=== PATIENT | female | born 1990 | race Caucasian/White ===

== ENCOUNTER 2016-07-27 03:12 | Emergency (ER) | payer MEDICAID ==
[~2016-07-27] VITALS: Ht 177.8 cm; Wt 65.0 kg
[~2016-07-27 03:12] MED LIST: BACT800T5 PO; CEPH500C3 PO
[2016-07-27 03:14] VITALS: BP 129/67; PULSE 90; RESP 16; TEMP 101.4; O2SAT 98
[2016-07-27 03:42] VITALS: BP 122/58; PULSE 78; RESP 18; TEMP 101; O2SAT 99
[2016-07-27] MEDS ORDERED: cefTRIAXone INJ 1,000 MG in SODIUM CHLORIDE 0.9% INJ 100 ML IV ONE (04:15)
[2016-07-27] MEDS ORDERED: IBUPROFEN 600 MG TAB PO ONE (04:15)
[2016-07-27] MEDS ORDERED: SODIUM CHLOR 0.9% 1000 ML INJ 1,000 ML IV ONE (04:15)
--- NOTE | 2016-07-27 04:44 | PD ---
HPI Chief Complaint: Cold / Flu Symptoms Time Seen by Provider: 03:47 Travel History International Travel<30 days: No Contact w/Intl Traveler<30days: No Traveled to known affect area: No History of Present Illness HPI The patient is a 25 year old female who presents to the [facility] emergency department with a history of a sore throat with lymph node swelling that she reports began yesterday. The patient reports that today she's had a fever with a MAXIMUM TEMPERATURE of 102. She reports that she last took Tylenol at 2 AM and her fever was not going down, therefore she came to the emergency department. She denies having any cough, nasal congestion, or rhinorrhea. She denies having any rashes. She denies having any known sick contacts. She denies having any neck stiffness. She denies having any abdominal pain, nausea, vomiting, or diarrhea. Review of systems, the patient denies any The patient denies any chest pain, shortness of breath, urinary symptoms, or neurologic symptoms. The patient denies any cat exposures. [facility] Past Medical History Narrative Medical The patient's past medical history is reportedly none. Medical History: Denies Significant Hx Diminished Hearing: No Reproductive: Yes (CHLAMYDIA ON 08/24/09) Immunizations Current: Yes Tetanus Vaccination: Unknown Influenza Vaccination: No ?: Not LMP: 07/21/2016 : 2 Para: 2 Past Surgical History Narrative Surgical The patient's past surgical history is reportedly none. 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 a history of opiate addiction.) Allergies-Medications (Allergen,Severity, Reaction): Coded Allergies: *MDRO Multi-Drug Resistant Organism (Verified Allergy, Unknown, 07/27/16) Wound MRSA 2005 Reported Meds & Prescriptions Reported Meds & Active Scripts Active Keflex (Cephalexin Monohydrate) 500 Mg Cap 500 Mg PO Q6 10 Days Bactrim DS (Sulfamethoxazole-Trimethoprim DS) 1 Tab Tab 1 Tab PO BID 10 Days Review of Systems Except as stated in HPI: all other systems reviewed are Neg General / Constitutional: Positive: Fever Eyes: No: Visual changes HENT: Positive: Sore Throat, Neck Pain, No: Headaches, Rhinorrhea, Congestion , Neck Stiffness Cardiovascular: No: Chest Pain or Discomfort Respiratory: No: Cough, Shortness of Breath Gastrointestinal: No: Nausea, Vomiting, Diarrhea, Abdominal Pain Genitourinary: No: Dysuria Musculoskeletal: No: Pain Skin: No Rash Neurologic: No: Weakness, Focal Abnormalities, Change in Mentation, Slurred Speech, Sensory Disturbance Psychiatric: No: Depression Endocrine: No: Polydipsia Hematologic/Lymphatic: No: Easy Bruising Physical Exam Narrative General: The patient is a well-developed well-nourished female in no acute distress. Head and Neck exam: Head is normocephalic atraumatic. Eyes: EOMI, pupils are equal round and reactive to light. Nose: Midline septum with pink mucous membranes Mouth: Dentition unremarkable. Moist mucus membranes. Posterior oropharynx erythematous with tonsillar hypertrophy and exudates noted. Uvula midline. Airway patent. Neck: The patient has palpable anterior cervical lymphadenopathy near her tonsils with tenderness on palpation. No nuchal rigidity. No thyromegaly. Cardiovascular: Regular rate and rhythm without murmurs, gallops, or rubs. Lungs: Clear to auscultation bilaterally. No wheezes, rhonchi, or rales. Abdomen: Soft, without tenderness to palpation in all 4 quadrants of the abdomen. No guarding, rebound, or rigidity. Normal bowel sounds are audible. No tenderness on palpation of McBurney's point. Extremities: No clubbing, cyanosis, or edema. 2+ pulses in all 4 extremities. No calf tenderness on palpation. Back: No costovertebral angle tenderness to palpation. Neurologic Exam: Grossly nonfocal. Skin Exam: No rash noted. Intact skin that is warm and dry. Data Data Last Documented VS Vital Signs Date Time Temp Pulse Resp B/P Pulse Ox O2 Delivery O2 Flow Rate FiO2 07/27/16 03:42 101.0 78 18 122/58 99 Room Air Orders Group A Rapid Strep Screen (07/27/16 03:48) Ceftriaxone Inj (Rocephin Inj) (07/27/16 04:15) Sodium Chlor 0.9% 1000 Ml Inj (Ns 1000 M (07/27/16 04:15) Ibuprofen (Motrin) (07/27/16 04:15) Strep Culture (Group A) (07/27/16 03:50) MDM Medical Decision Making Medical Screen Exam Complete: Yes Emergency Medical Condition: Yes Medical Record Reviewed: Yes Differential Diagnosis Strep pharyngitis, versus viral pharyngitis, versus other viral syndrome, versus cat scratch disease Narrative Course During the course of the patients emergency department visit, the patients history, examination, and differential diagnosis were reviewed with the patient. The patient had IV access obtained and a rapid strep test was sent. The patient was initially provided normal saline 1 L IV fluid bolus, Rocephin 1 g IV, ibuprofen for fever. The patients laboratory studies were reviewed and remarkable for a rapid strep test that was negative, however given the classic findings on examination of strep pharyngitis the patient will be treated with antibiotic. The patient is resting comfortably and feels better, is alert and in no distress. The patients results and examination findings were discussed with the patient. The repeat examination is unremarkable and benign. The history, exam, diagnostic testing, and current condition do not suggest any significant pathology to warrant further testing, continued ED treatment, admission, or surgical evaluation at this point. The vital signs have been stable. The patient does not have uncontrollable pain, intractable vomiting, or other significant symptoms. The patient's condition is stable and appropriate for discharge. The patient will pursue further outpatient evaluation with a primary care physician or other designated or consulting physician as indicated in the discharge instructions. The patient expressed understanding and was agreeable with this plan. Diagnosis Primary Impression: Acute bacterial pharyngitis Referrals: Primary Care Physician 1 week Patient Instructions: General Instructions, Pharyngitis (ED) Med/Other Pt SpecificInfo: Prescription(s) given Scripts Amoxicillin 500 Mg [id number] Mg PO BID 10 Days Ref 0 Prov:Roseanna Gonzalez MD 07/27/16 Disposition: 01 DISCHARGE HOME Condition: Stable Roseanna Gonzalez MD Jul 27, 2016 04:44
[2016-07-27] MEDS ORDERED: AMOX500C PO (05:06)
== END 2016-07-27 05:26 | disposition home or self-care (01) ==
LOC: NEPE 03:12
DX: J02.9 Acute pharyngitis, unspecified (principal); R59.1 Generalized enlarged lymph nodes
CPT/HCPCS: 87081; 87880; 96365; 99284; J0696; J7030